=== PATIENT | female | born 1955 | race Caucasian/White ===

== ENCOUNTER 2017-06-04 16:59 | Emergency (ER) | payer BC ==
[2017-06-04] MEDS ORDERED: Sodium Chloride 0.9% 10 ML Syringe FLUSH PRN (17:05)
[2017-06-04 17:12] VITALS: BP 126/71
[2017-06-04] MEDS ORDERED: Sodium Chloride 0.9% 1,000 ML IV SCH (17:15)
--- NOTE | 2017-06-04 17:18 | EDM.PDOC ---
ED HPI GENERAL MEDICAL PROBLEM - General Stated Complaint: AILYN STROKE, [id number] Time Seen by Provider: 06/04/17 17:08 Source of Information: Reports: Patient, Family History Limitations: Reports: No Limitations - History of Present Illness INITIAL COMMENTS - FREE TEXT/NARRATIVE: 62 yo female presents with difficulty speaking and slurred speech. denies LOC. family states last time seen normal was around 1 pm. states that she has been forgetful and not able to communicate effectively for the past few hours. Pt denies pain. A&O x 2. Onset: Today Onset Time: 13:00 Duration: Getting Worse - Related Data Allergies Allergy/AdvReac Type Severity Reaction Status Date / Time sulfamethoxazole Allergy Cannot Verified 06/04/17 17:45 [From Bactrim] Remember trimethoprim [From Bactrim] Allergy Cannot Verified 06/04/17 17:45 Remember ED ROS GENERAL - Review of Systems Review Of Systems: See Below Neurological: Reports: Trouble Speaking, Change in Speech ED EXAM, NEURO - Physical Exam Exam: See Below Exam Limited By: No Limitations General Appearance: Alert, WD/WN, No Apparent Distress Eye Exam: Bilateral Eye: PERRL Nose: Normal Inspection, Normal Mucosa, No Blood Throat/Mouth: Normal Inspection, Normal Lips, Normal Teeth, Normal Gums, Normal Oropharynx, Normal Voice, No Airway Compromise Head Exam: Atraumatic, Normocephalic Neck: Normal Inspection, Supple, Non-Tender, Full Range of Motion Respiratory/Chest: No Respiratory Distress, Lungs Clear, No Accessory Muscle Use , Chest Non-Tender, Wheezing (bilaterally) Cardiovascular: Normal Peripheral Pulses, Regular Rate, Rhythm, No Edema, No Gallop, No JVD, No Murmur, No Rub GI/Abdominal: Normal Bowel Sounds, Soft, Non-Tender, No Organomegaly, No Distention, No Abnormal Bruit, No Mass Neurological: Alert, Normal Mood/Affect, Normal Dorsiflexion, Normal Plantar Flexion, Normal Reflexes, No Motor/Sensory Deficits, Oriented x 3, Other ( aphasia. no pronator drift, no facial droop noted,) DTR: 4+: Bicep (R), Bicep (L), Patella (R), Patella (L) Extremities: Normal Inspection, Normal Range of Motion, Non-Tender, No Pedal Edema, Normal Capillary Refill Psychiatric: Normal Affect, Normal Mood Skin Exam: Warm, Dry, Intact, Normal Color, No Rash Course - Vital Signs Last Recorded V/S: Last Vital Signs Temp 98.4 F 06/04/17 17:11 Pulse 103 H 06/04/17 17:11 Resp 20 06/04/17 17:11 BP 126/71 06/04/17 17:11 Pulse Ox 93 L 06/04/17 17:11 - Orders/Labs/Meds Orders: Active Orders 24 hr Category Date Time Status Blood Glucose Check, Bedside [RC] ONETIME Care 06/04/17 17:05 Active EKG Documentation Completion [RC] STAT Care 06/04/17 17:05 Active Chest 1V Frontal [CR] Stat Exams 06/04/17 17:05 Taken Head wo Cont [CT] Stat Exams 06/04/17 17:05 Taken C-REACTIVE PROTEIN [REF] Stat Lab 06/04/17 17:05 Ordered CBC WITH AUTO DIFF [HEME] Stat Lab 06/04/17 17:05 Ordered CK W CKMB [CHEM] Stat Lab 06/04/17 17:05 Ordered COMPREHENSIVE METABOLIC PN,CMP [CHEM] Stat Lab 06/04/17 17:05 Ordered INR,PT,PROTHROMBIN TIME [COAG] Stat Lab 06/04/17 17:05 Ordered PTT,PARTIAL THROMBOPLSTIN TIME [COAG] Stat Lab 06/04/17 17:05 Ordered TROPONIN I [CHEM] Stat Lab 06/04/17 17:05 Ordered UA W/MICROSCOPIC [URIN] Stat Lab 06/04/17 17:05 Uncollected Sodium Chloride 0.9% [Normal Saline] 1,000 ml Med 06/04/17 17:15 Active IV .BOLUS Sodium Chloride 0.9% [Saline Flush] Med 06/04/17 17:05 Active 10 ml FLUSH ASDIRECTED PRN Saline Lock Insert [OM.PC] Urgent Oth 06/04/17 17:05 Ordered Medication Orders Sodium Chloride (Normal Saline) 1,000 mls @ 999 mls/hr IV .BOLUS NORMAN Last Admin: 06/04/17 17:31 Dose: 999 mls/hr Sodium Chloride (Saline Flush) 10 ml FLUSH ASDIRECTED PRN PRN Reason: Keep Vein Open Last Admin: 06/04/17 17:28 Dose: 10 ml Labs: Laboratory Tests 06/04/17 Range/Units 17:31 POC Glucose 130 H (70-105) mg/dl Meds: Medications Generic Name Dose Route Start Last Admin Trade Name Freq PRN Reason Stop Dose Admin Sodium Chloride 1,000 mls @ 999 mls/hr 06/04/17 17:15 06/04/17 17:31 Normal Saline IV 999 mls/hr .BOLUS NORMAN Administration Sodium Chloride 10 ml 06/04/17 17:05 06/04/17 17:28 Saline Flush FLUSH 10 ml ASDIRECTED PRN Administration Keep Vein Open - Radiology Interpretation Free Text/Narrative:: Low attentuation i n left cerebellum, possible indicative of acute ischemia. - Re-Assessments/Exams Free Text/Narrative Re-Assessment/Exam: 06/04/17 18:[address] Camp at [facility] who feels that patient may be candidate for intervention at [facility]. [facility] called and case discussed with Dr. Conklin, who accepted the patient . Pt unable to be transported via flight due to weather. Will transport via ground EMS. Pt alert, she and understand plan of care and agrees to transfer Departure - Departure Time of Disposition: 18:07 Disposition: DC/Tfer to Acute Hospital 02 Condition: Fair Clinical Impression: Cerebrovascular accident (CVA) Qualifiers: CVA mechanism: unspecified Qualified Code(s): I63.9 - Cerebral infarction, unspecified - Discharge Information Forms: Interfacility Transfer EMTALA, ED Department Discharge - My Orders Last 24 Hours: My Active Orders 06/04/17 17:05 Blood Glucose Check, Bedside [RC] ONETIME EKG Documentation Completion [RC] STAT Chest 1V Frontal [CR] Stat Head wo Cont [CT] Stat C-REACTIVE PROTEIN [REF] Stat CBC WITH AUTO DIFF [HEME] Stat CK W CKMB [CHEM] Stat COMPREHENSIVE METABOLIC PN,CMP [CHEM] Stat INR,PT,PROTHROMBIN TIME [COAG] Stat PTT,PARTIAL THROMBOPLSTIN TIME [COAG] Stat TROPONIN I [CHEM] Stat UA W/MICROSCOPIC [URIN] Stat Sodium Chloride 0.9% [Saline Flush] 10 ml FLUSH ASDIRECTED PRN Saline Lock Insert [OM.PC] Urgent 06/04/17 17:15 Sodium Chloride 0.9% [Normal Saline] 1,000 ml IV .BOLUS - Assessment/Plan Last 24 Hours: My Active Orders 06/04/17 17:05 Blood Glucose Check, Bedside [RC] ONETIME EKG Documentation Completion [RC] STAT Chest 1V Frontal [CR] Stat Head wo Cont [CT] Stat C-REACTIVE PROTEIN [REF] Stat CBC WITH AUTO DIFF [HEME] Stat CK W CKMB [CHEM] Stat COMPREHENSIVE METABOLIC PN,CMP [CHEM] Stat INR,PT,PROTHROMBIN TIME [COAG] Stat PTT,PARTIAL THROMBOPLSTIN TIME [COAG] Stat TROPONIN I [CHEM] Stat UA W/MICROSCOPIC [URIN] Stat Sodium Chloride 0.9% [Saline Flush] 10 ml FLUSH ASDIRECTED PRN Saline Lock Insert [OM.PC] Urgent 06/04/17 17:15 Sodium Chloride 0.9% [Normal Saline] 1,000 ml IV .BOLUS
[2017-06-04] MEDS ORDERED: Aspirin 81 MG Tab.Chew PO ONE (17:44)
[2017-06-04 17:59] LABS: CHLORIDE,CL 100 mmol/L (101-111); SODIUM,NA 139 mmol/L (135-145)
--- NOTE | 2017-06-08 10:32 | EKG ---
06/04/2017 - STEPHANIE WISE I reviewed the EKG and agree with the machine's reading. [facility] /[id number]
== END 2017-06-04 18:21 ==
LOC: EDBD → DL.ED 16:59 → EDBD 16:59 → DL.ED 18:21
DX: I63.9 Cerebral infarction, unspecified (principal); Z88.2 Allergy status to sulfonamides; Z88.1 Allergy status to other antibiotic agents
CPT/HCPCS: 36415; 70450; 71010; 80053; 82550; 82553; 82962; 84484; 85025; 85610; 85730; 86140; 93005; 96360; 99285; J7050